=== PATIENT | male | born 1965 ===

== ENCOUNTER 2016-09-26 12:37 | Emergency (ER) | payer BC, OTHER ==
[2016-09-26 15:10] VITALS: BP 138/89
--- NOTE | 2016-09-26 15:22 | UC ---
Respiratory Complaint HPI - HPI Summary HPI Summary: 51 yo male with sore throat and cough x 5 days no f/c no CP or SOB - History of Current Complaint Chief Complaint: UCGeneralIllness Stated Complaint: SORE THROAT Time Seen by Provider: 09/26/16 15:15 Hx Obtained From: Patient Onset/Duration: Gradual Onset, Lasting Days Timing: Constant Severity Initially: Mild Severity Currently: Moderate Pain Intensity: 4 Pain Scale Used: 0-10 Numeric Character: Cough: Productive Aggravating Factors: Nothing Alleviating Factors: Nothing Associated Signs And Symptoms: Positive: Wheezing. Negative: Dyspnea, Fever, Chills, Pleuritic Chest Pain, Hemoptysis, Dizziness, Calf Pain, Calf Swelling, Edema, URI, Nasal Congestion, Hoarseness, Sinus Discomfort - Allergies/Home Medications Allergies/Adverse Reactions: Allergies Allergy/AdvReac Type Severity Reaction Status Date / Time No Known Allergies Allergy Verified 09/26/16 15:00 Home Medications: Home Medications Omeprazole CAP* [Prilosec CAP* 20 MG] 20 mg PO DAILY 09/26/16 [History Confirmed 09/26/16] Testosterone Boost DAILY 09/26/16 [History] amLODIPine TAB* [Norvasc 5 mg TAB*] 20 mg PO DAILY 09/26/16 [History Confirmed 09/26/16] PMH/Surg Hx/FS Hx/Imm Hx Previously Healthy: Yes Cardiovascular History Of: Reports: Hypertension Respiratory History Of: Reports: Pneumonia - Surgical History Surgical History: Yes Surgery Procedure, Year, and Place: hernia surgery. ankle surgery - Family History Known Family History: Positive: Hypertension - Social History Alcohol Use: Daily Substance Use Type: None Smoking Status (MU): Never Smoked Tobacco Review of Systems Constitutional: Fatigue Skin: Negative Eyes: Negative ENT: Sore Throat Respiratory: Cough Cardiovascular: Negative Gastrointestinal: Negative Genitourinary: Negative Motor: Negative Neurovascular: Negative Musculoskeletal: Negative Neurological: Negative Psychological: Negative All Other Systems Reviewed And Are Negative: Yes Physical Exam Triage Information Reviewed: Yes Appearance: Well-Appearing, No Pain Distress, Well-Nourished Vital Signs: Initial Vital Signs Temp 98.0 F 09/26/16 14:56 Pulse 64 09/26/16 14:56 Resp 16 09/26/16 14:56 BP 138/89 09/26/16 14:56 Pulse Ox 99 09/26/16 14:56 Eyes: Positive: Conjunctiva Clear. Negative: Conjunctiva Inflamed, Discharge ENT: Positive: Hearing grossly normal, Pharyngeal erythema, TMs normal. Negative: Nasal congestion, Nasal drainage, Tonsillar swelling, Tonsillar exudate, Trismus, Muffled/hoarse voice Neck: Positive: Supple, Nontender, No Lymphadenopathy Respiratory: Positive: No respiratory distress, No accessory muscle use, Wheezing - with forced expiration only. Negative: Respiratory distress Cardiovascular: Positive: RRR, No Murmur Musculoskeletal: Positive: ROM Intact, No Edema Neurological: Positive: Alert Psychological Exam: Normal Skin Exam: Normal UC Diagnostic Evaluation - Laboratory O2 Sat by Pulse Oximetry: 99 - normal /not hypoxic Respiratory Course/Dx - Differential Dx/Diagnosis Provider Diagnoses: acute bronchitis. pharyngitis Discharge - Discharge Plan Condition: Stable Disposition: HOME Prescriptions: Amoxicillin (*) [Amoxicillin 875 MG (*)] 875 mg PO BID #20 tab Patient Education Materials: Pharyngitis (ED), Acute Bronchitis (ED) Referrals: Terrie Baer [Primary Care Provider] - 5 Days (if not better) Additional Instructions: rest fluids mucinex recheck for new or worsening symptoms or if not better in 4 days
== END 2016-09-26 15:31 | disposition home or self-care (01) ==
LOC: UCCORT 12:37
DX: J20.9 Acute bronchitis, unspecified (principal); J02.9 Acute pharyngitis, unspecified; I10 Essential (primary) hypertension
CPT/HCPCS: 99202; G0463

== ENCOUNTER 2018-12-20 14:30 | Emergency (ER) | payer SELFPAY ==
[2018-12-20 16:04] VITALS: BP 141/82
--- NOTE | 2018-12-20 16:41 | ED ---
Throat Pain/Nasal Congestion - HPI Summary HPI Summary: 53 yr old male with the complaint of left ear plugged. He has felt this way for a couple of weeks and worse for the past few days. The patient has has some ear ringing. He tried to flush his ear earlier and it made him dizzy doing it and off balance briefly. He feels he has wax build up in the ear. He denies URI symptoms. He denies coughing. He denies headache. - History of Current Complaint Chief Complaint: UCEar Time Seen by Provider: 12/20/18 16:05 - Allergies/Home Medications Allergies/Adverse Reactions: Allergies Allergy/AdvReac Type Severity Reaction Status Date / Time No Known Allergies Allergy Verified 12/20/18 16:06 Home Medications: Home Medications Amlodipine Besylate/Benazepril [Lotrel 5-20 mg Capsule] 1 each PO DAILY [History Confirmed 12/20/18] Multivitamin [Multivitamins] 1 each PO DAILY 12/20/18 [History Confirmed ] PMH/Surg Hx/FS Hx/Imm Hx Cardiovascular History: Reports: Hx Hypertension Respiratory History: Reports: Hx Pneumonia - Surgical History Surgery Procedure, Year, and Place: umbilical hernia surgery with mesh. left ankle surgery Infectious Disease History: No Infectious Disease History: Denies: Traveled Outside the [place] in Last 30 Days - Family History Known Family History: Positive: Hypertension - Social History Occupation: Employed Full-time Alcohol Use: Weekly Alcohol Amount: 12 Substance Use Type: Reports: Marijuana Substance Use Comment - Amount & Last Used: 12/19/18 Smoking Status (MU): Never Smoked Tobacco Review of Systems Constitutional: Negative Positive: Other - left ear plugged All Other Systems Reviewed And Are Negative: Yes Physical Exam Triage Information Reviewed: Yes Vital Signs On Initial Exam: Initial Vitals Temp Pulse Resp BP Pulse Ox 98.9 F 88 18 141/82 97 12/20/18 15:53 12/20/18 15:53 12/20/18 15:53 12/20/18 15:53 12/20/18 15:53 Vital Signs Reviewed: Yes Appearance: Positive: Well-Appearing, No Pain Distress Skin: Positive: Warm, Skin Color Reflects Adequate Perfusion Head/Face: Positive: Normal Head/Face Inspection Eyes: Positive: EOMI, LAMBERTO ENT: Positive: Pharynx normal, Other - left external canal with impacted cerumen.. Negative: Nasal congestion, Nasal drainage Respiratory/Lung Sounds: Positive: Clear to Auscultation, Breath Sounds Present Cardiovascular: Positive: RRR. Negative: Murmur Abdomen Description: Negative: Distended Musculoskeletal: Positive: Strength/ROM Intact Neurological: Positive: Sensory/Motor Intact, Alert, Oriented to Person Place, Time, CN Intact II-III, Normal Gait, Speech Normal Psychiatric: Positive: Normal - [place] Coma Scale Best Eye Response: 4 - Spontaneous Best Motor Response: 6 - Obeys Commands Best Verbal Response: 5 - Oriented Coma Scale Total: 15 Diagnostics - Vital Signs Vital Signs Temp Pulse Resp BP Pulse Ox 12/20/18 15:53 98.9 F 88 18 141/82 97 - Laboratory Lab Statement: Any lab studies that have been ordered have been reviewed, and results considered in the medical decision making process. EENT Course/Dx - Course Course Of Treatment: 53 yr old with cerumen impaction that remains even after irrigation attempts. Will refer to ENT for further treatment tomorrow. - Diagnoses Provider Diagnoses: Impacted cerumen of left ear Discharge - Sign-Out/Discharge Documenting (check all that apply): Patient Departure All imaging exams completed and their final reports reviewed: No Studies - Discharge Plan Condition: Good Disposition: HOME Patient Education Materials: Cerumen Impaction (ED), Hypertension (ED) Referrals: Terrie Baer [Primary Care Provider] - 1 Day Farhan Hernandez MD [Medical Doctor] - 1 Day Nikhil Huang MD [Medical Doctor] - 1 Day - Billing Disposition and Condition Condition: GOOD Disposition: Home
== END 2018-12-20 17:36 | disposition home or self-care (01) ==
LOC: UCCORT 14:30
DX: H61.22 Impacted cerumen, left ear (principal); I10 Essential (primary) hypertension
CPT/HCPCS: 99212; G0463